=== PATIENT | female | born 1950 | race Asian ===

== ENCOUNTER 2019-02-09 08:22 | Day surgery (SDC) | payer OTHER ==
[2019-02-09] MEDS ORDERED: Lactated Ringers 1,000 ML IV ONE (09:06)
[2019-02-09] MEDS ORDERED: Lactated Ringers 1,000 ML IV SCH (09:30)
[2019-02-09] MEDS ORDERED: DIPRIVAN 200 MG/20 ML IV ONE ×2 (10:57→11:06)
[2019-02-09 11:58] VITALS: O2SAT 98
[2019-02-09 12:28] VITALS: BP 158/89; PULSE 63
--- NOTE | 2019-02-09 14:17 | HP ---
DATE OF SURGERY: 02/09/2019 ADMISSION DIAGNOSIS: Ten year follow up for polyps. ANTICIPATED PROCEDURE: Colonoscopy. HISTORY OF PRESENT ILLNESS: The patient had examination ten years ago. She had a normal examination. She now presents for ten year screening examination. PAST MEDICAL HISTORY: ALLERGIES: PENICILLIN. MEDICATIONS: Bisoprolol hydrochlorothiazide, atorvastatin, loratadine, fluconazole, trazodone. PAST SURGICAL HISTORY: Previous colonoscopy. SOCIAL HISTORY: Negative. FAMILY HISTORY: Negative. REVIEW OF SYSTEMS: Negative. PHYSICAL EXAMINATION: VITAL SIGNS: Normal. CHEST: Clear. COR: Regular. ABDOMEN: Satisfactory. IMPRESSION: Ten year screening. PLAN: Ten year screening.
--- NOTE | 2019-02-09 14:50 | OP ---
SURGERY DATE/TIME: 02/09/2019 1054 PREOPERATIVE DIAGNOSIS: Ten year screening, previous history of polyps. POSTOPERATIVE DIAGNOSIS: Normal. PROCEDURES: 1) Colonoscopy complete to cecum. 2) Hot polypectomy x2 (one in mid ascending and one in the hepatic flexure). SURGEON: Ubaldo Tee M.D. ANESTHESIA: MAC. COMPLICATIONS: None. CONDITION: Stable. INDICATION: A patient requiring evaluation. DESCRIPTION OF PROCEDURE: Taken to endoscopy. MAC sedation provided. Scope introduced. Anal digital examination satisfactory. Scope advanced to the cecum. Base of cecum, ileocecal valve and appendiceal orifice normal. Ascending an 8 mm polyp taken to extinction. In the hepatic flexure a 1 cm taken to extinction. Route [employer] samples submitted. Transverse, splenic, descending, sigmoid, rectum, anus satisfactory. There was moderate internal hemorrhoid disease of the perianal area.
== END 2019-02-09 12:35 | disposition home or self-care (01) ==
LOC: SDC 08:22
PROVIDERS: ATTEND Surgery
DX: Z12.11 Encounter for screening for malignant neoplasm of colon (principal); Z09 Encounter for follow-up examination after completed treatment for conditions other than malignant neoplasm; D12.3 Benign neoplasm of transverse colon; D12.2 Benign neoplasm of ascending colon; K64.8 Other hemorrhoids; Z86.010 Personal history of colon polyps
CPT/HCPCS: 88305; J2704